=== PATIENT | male | born 1970 | race Caucasian/White ===

== ENCOUNTER → 2016-10-07 | Outpatient (REF) ==
--- NOTE | 2016-10-07 09:57 | REP ---
Clinical: Pain and disability. Technique: AP, lateral, coned-down views. Findings: Alignment and lordosis maintained. Endplate sclerosis with anterior spurring and disc space narrowing at the L5-S1 level suggests moderate focal degenerative change. Impression: Moderate degenerative change at the L5-S1 level. Signed by Efraín Brooks MD 10/07/2016 09:49 A
--- NOTE | 2016-10-07 09:58 | REP ---
Clinical: Trauma. Technique: AP, lateral, bilateral oblique views. Findings: The osseous structures and joint spaces are intact and normal for age. Minimal joint space narrowing at the interphalangeal joints. There is no evidence for acute fracture or dislocation. Surrounding soft tissues are unremarkable. No subcutaneous emphysema or radiodense foreign body. Impression: Minimal joint space narrowing at the interphalangeal joint and radiocarpal joint. Signed by Efraín Brooks MD 10/07/2016 09:50 A
--- NOTE | 2016-10-07 10:00 | REP ---
Clinical: Chest pain . Comparison: None . Technique: PA and lateral. Findings: The mediastinum and cardiac silhouette are normal. The lung thomas are clear and without acute consolidation, effusion, or pneumothorax. The skeletal structures are intact and normal. Impression: 1. No acute cardiopulmonary process. Signed by Efraín Brooks MD 10/07/2016 09:51 A
--- NOTE | 2016-10-07 10:00 | REP ---
Clinical: Pain . Technique: Internal rotation, external rotation, and Y view of the right and left shoulder . Findings: No acute fracture or dislocation. The bilateral glenohumeral joints are intact and normal. Subtle cortical irregularity at the right acromioclavicular joint is appreciated left acromioclavicular joint demonstrates subtle cortical irregularity as well as small calcified density superior to the acromion process. Impression: Minimal degenerative changes as noted above. Signed by Efraín Brooks MD 10/07/2016 09:51 A
--- NOTE | 2016-10-07 10:01 | REP ---
Clinical: Pain . Technique: AP, lateral, bilateral oblique views right ankle . Findings: No acute fracture or dislocation. Skeletal structures and joint spaces are intact and normal for age. Ankle mortise appears stable. No subcutaneous emphysema or radiodense foreign body. Impression: Normal right ankle radiograph series. Signed by Efraín Brooks MD 10/07/2016 09:52 A
--- NOTE | 2016-10-07 10:04 | REP ---
Clinical: Pain and disability. Technique: AP and lateral views of the right tibia / fibula. Findings: Osseous structures, joint spaces, and surrounding soft tissues are normal. No acute fracture dislocation. No overt arthritic degenerative changes. Impression: Normal right tibia / fibula. Signed by Efraín Brooks MD 10/07/2016 09:55 A
--- NOTE | 2016-10-07 10:05 | REP ---
Clinical: Trauma. Technique: AP, lateral, bilateral oblique and sunrise views right knee . Findings: The osseous structures and joint spaces are intact and normal for age . There is no evidence for acute fracture or dislocation. No joint effusion is appreciated. Surrounding soft tissues are unremarkable. No subcutaneous emphysema or radiodense foreign body. Impression: Essentially age-appropriate right knee radiograph series Signed by Efraín Brooks MD 10/07/2016 09:56 A
== END ==
LOC: M SMT 08:36
PROVIDERS: ATTEND Internal Medicine
DX: Z02.71 Encounter for disability determination (principal); M54.5 Low back pain